=== PATIENT | male | born 1960 | race Two or more races ===

== ENCOUNTER 2017-03-24 13:14 | Emergency (ER) | payer SELFPAY ==
[~2017-03-24] VITALS: Ht 172.7 cm; Wt 85.3 kg
[2017-03-24 14:41] VITALS: BP 142/83
[2017-03-24] MEDS ORDERED: HYDR-971 PO (14:49)
[2017-03-24] MEDS ORDERED: SULF1TAB24 PO (14:49)
--- NOTE | 2017-03-24 14:49 | PHYS DOC ---
Past Medical History Past Medical History: Asthma, High Cholesterol, PA, Other Additional Past Medical Histor: PA W/ ARREST Past Surgical History: Other Additional Past Surgical Histo: BONE GRAFT (LEFT RIB TO LEFT JAW) PER PT Alcohol Use: Heavy Drug Use: None Adult General Chief Complaint Chief Complaint: ELBOW PROBLEM HPI HPI Patient is a 57 year old presents the ED complaining of left elbow swelling 1 week. Patient states the swelling has gotten worse over the last day. Describes the pain as uncomfortable. Rates the pain as 5 out of 10. Denies trauma, fever, nausea/vomiting, drainage, headache, chest pain or shortness of breath. Review of Systems Review of Systems Constitutional: Denies fever or chills [] Eyes: Denies change in visual acuity, redness, or eye pain [] HENT: Denies nasal congestion or sore throat [] Respiratory: Denies cough or shortness of breath [] Cardiovascular: No additional information not addressed in HPI [] GI: Denies abdominal pain, nausea, vomiting, bloody stools or diarrhea [] : Denies dysuria or hematuria [] Musculoskeletal: Denies back pain. Complains of left elbow swelling. [] Integument: Denies rash or skin lesions [] Neurologic: Denies headache, focal weakness or sensory changes [] Endocrine: Denies polyuria or polydipsia [] Allergies Allergies Allergies Coded Allergies Type Severity Reaction Last Updated Verified No Known Drug Allergies 03/24/17 No Physical Exam Physical Exam Constitutional: Well developed, well nourished, no acute distress, non-toxic appearance. [] HENT: Normocephalic, atraumatic, bilateral external ears normal, oropharynx moist, no oral exudates, nose normal. [] Eyes: PERRLA, EOMI, conjunctiva normal, no discharge. [] Neck: Normal range of motion, no tenderness, supple, no stridor. [] Cardiovascular:Heart rate regular rhythm, no murmur [] Lungs & Thorax: Bilateral breath sounds clear to auscultation [] Abdomen: Bowel sounds normal, soft, no tenderness, no masses, no pulsatile masses. [] Skin: Warm, dry, no erythema, no rash. [] Back: No tenderness, no CVA tenderness. [] Extremities: MILD LEFT ELBOW SWELLING. NO REDNESS, WARMTH OR SIGNS OF INFECTION. no cyanosis, no clubbing, ROM intact, no edema. [] Neurologic: Alert and oriented X 3, normal motor function, normal sensory function, no focal deficits noted. [] Psychologic: Affect normal, judgement normal, mood normal. [] Current Patient Data Vital Signs Vital Signs Date Time Temp Pulse Resp B/P (MAP) Pulse Ox O2 Delivery O2 Flow Rate FiO2 03/24/17 14:41 98.2 72 20 95 Room Air 98.2 EKG EKG [] Radiology/Procedures Radiology/Procedures No bony tenderness or trauma. No x-ray warranted. Will treat for olecranon bursitis. Will cover with Bactrim outpatient. Valentin wrap placed. Neurovascular intact post placement. Discussed symptomatic treatment. Provided contact information for orthopedic follow-up this week. Discussed reasons to return to the ED. Patient understands and agrees with plan.[] Course & Med Decision Making Course & Med Decision Making Pertinent Labs and Imaging studies reviewed. (See chart for details) [] Dragon Disclaimer Dragon Disclaimer This electronic medical record was generated, in whole or in part, using a voice recognition dictation system. Departure Departure Impression: Primary Impression: Olecranon bursitis Disposition: HOME, SELF-CARE Condition: STABLE Referrals: NO PCP (PCP) KODAK VACA MD Patient Instructions: Olecranon Bursitis Scripts Hydrocodone/Apap 5-325 (NORCO 5-325 TABLET) 1 Each Tablet 1 TAB PO TID, #8 TAB Prov: MITUL VALENCIA 03/24/17 Sulfamethoxazole/Trimethoprim (BACTRIM DS TABLET) 1 Each Tablet 1 TAB PO BID, #20 TAB Prov: MITUL VALENCIA 03/24/17 MITUL VALENCIA Mar 24, 2017 14:49
== END 2017-03-24 15:43 | disposition home or self-care (01) ==
LOC: ER 13:14
DX: M70.22 Olecranon bursitis, left elbow (principal); J45.909 Unspecified asthma, uncomplicated; E78.00 Pure hypercholesterolemia, unspecified; I25.2 Old myocardial infarction; F10.10 Alcohol abuse, uncomplicated
CPT/HCPCS: 99283